=== PATIENT | female | born 1995 ===

== ENCOUNTER 2016-11-27 17:23 | Emergency (ER) | payer BC, MEDICAID ==
[2016-11-27 17:51] VITALS: BMI 20.5
[2016-11-27 17:56] VITALS: RESP 18; TEMP 98.6; O2SAT 100
[2016-11-27] MEDS ORDERED: Sodium Chloride 0.9% 1,000 ML IV STA (18:45)
[2016-11-27 19:57] LABS: ADD MANUAL DIFF? NO
[2016-11-27 20:09] LABS: URINE BILIRUBIN NEGATIVE (NEGATIVE); URINE BLOOD NEGATIVE (NEGATIVE); URINE GLUCOSE (UA) NEGATIVE (NEGATIVE); URINE KETONE NEGATIVE (NEGATIVE); URINE LEUKOCYTE ESTERASE NEGATIVE Leu/uL (NEGATIVE); URINE PROTEIN NEGATIVE mg/dL (<30 mg/dL); URINE UROBILINOGEN 0.2 E.U./dL (<1 E.U./dL)
[2016-11-27 20:11] LABS: ALB/GLOB RATIO 1.3 (1.1-1.8); ALKALINE PHOSPHATASE 55 U/L (38-133); ALT/SGPT 41 U/L (7-56); AST/SGOT 32 U/L (15-39); BILIRUBIN,TOTAL 0.4 mg/dL (0.2-1.3); BLOOD UREA NITROGEN 7 mg/dL (7-21); CALCIUM 9.5 mg/dL (8.4-10.5); CARBON DIOXIDE 29 mmol/L (21-33); CHLORIDE 103 mmol/L (98-107); GFR AFRICAN-AMERICAN > 60; GLUCOSE,RANDOM 90 mg/dL (70-110); LIPASE 47 U/L (23-300); POTASSIUM 4.3 mmol/L (3.6-5.0); SODIUM 140 mmol/L (132-148); TOTAL PROTEIN 7.2 g/dL (5.8-8.3); URINE APPEARANCE CLEAR (CLEAR); URINE COLOR YELLOW (YELLOW)
[2016-11-27 20:15] LABS: INR 1.16 (0.93-1.08); PARTIAL THROMBOPLASTIN TIME 29.5 Seconds (23.7-30.8)
[2016-11-27 20:18] LABS: BASO # 0.04 K/mm3 (0.0-2.0); BASO % 0.4 % (0.0-3.0); EOS # 0.2 (0.0-0.7); EOS % 1.6 % (1.5-5.0); GRAN # 6.52 (1.4-6.5); GRAN % 67.1 % (50.0-68.0); HEMATOCRIT 37.1 % (36.0-48.0); LYMPH # 2.2 (1.2-3.4); LYMPH % 22.1 % (22.0-35.0); MEAN CELL VOLUME 86.3 fL (80.0-105.0); MEAN CORPUSCULAR HEMOGLOBIN 28.8 pg (25.0-35.0); MEAN CORPUSCULAR HGB CONC 33.4 g/dl (31.0-37.0); MEAN PLATELET VOLUME 10.5 fl (7.0-11.0); MONO # 0.9 (0.1-0.6); MONO % 8.8 % (1.0-6.0); PLATELET COUNT 198 10^3/uL (120.0-450.0); RED CELL DISTRIBUTION WIDTH 13.2 % (11.5-14.5); WHITE BLOOD COUNT 9.7 10^3/ul (4.5-11.0)
--- NOTE | 2016-11-27 21:25 | ED PDOC ---
Arrival/HPI - General Chief Complaint: GI Problem Time Seen by Provider: 11/27/16 18:45 Historian: Patient - History of Present Illness Narrative History of Present Illness (Text): 11/27/16 21:22 21yo female present with complaint of mild abdominal pain and diarrhea.. States symptoms started yesterday. She states she had 4episodes of diarrhea today and one episode of vomiting. Denies fever, chills, urinary symptoms, back pain, sick contact, hematemesis, melena, any other complaint. 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 - Psychiatric Hx Psychophysiologic Disorder: No Hx Anxiety: No Hx Bipolar Disorder: No Hx Depression: No Hx Emotional Abuse: No Hx Hallucinations: No Hx Panic Disorder: No Hx Post Traumatic Stress Disorder: No Hx Psychosis: No Hx Physical Abuse: No Hx Schizophrenia: No Hx Sexual Abuse: No Hx Substance Use: No - Surgical History Other/Comment: Right kidney sx at 2yrs old - Anesthesia Hx Anesthesia: Yes Hx Anesthesia Reactions: No Hx Malignant Hyperthermia: No - Suicidal Assessment Feels Threatened In Home Enviroment: No Family/Social History - Physician Review Nursing Documentation Reviewed: Yes Family/Social History: Unknown Family HX Smoking Status: Never Smoked Hx Alcohol Use: No Hx Substance Use: No Hx Substance Use Treatment: No Allergies/Home Meds Allergies/Adverse Reactions: Allergies No Known Allergies Allergy (Verified 11/27/16 17:51) Review of Systems - Physician Review All systems were reviewed & negative as marked: Yes - Review of Systems Constitutional: Normal Eyes: Normal ENT: Normal Respiratory: Normal Cardiovascular: Normal Gastrointestinal: Abdominal Pain, Diarrhea, Nausea, Vomiting. absent: Constipation, Hematochezia, Hematemesis Genitourinary Female: Normal Musculoskeletal: Normal Skin: Normal Neurological: Normal Endocrine: Normal Hemo/Lymphatic: Normal Psychiatric: Normal Physical Exam Vital Signs Reviewed: Yes Vital Signs Temp Pulse Resp BP Pulse Ox 11/27/16 21:30 90 18 110/72 100 11/27/16 17:54 98.6 F 99 H 18 91/58 L 100 Temperature: Afebrile Blood Pressure: Normal Pulse: Regular Respiratory Rate: Normal Appearance: Positive for: Well-Appearing, Non-Toxic, Comfortable Pain Distress: None Mental Status: Positive for: Alert and Oriented X 3 - Systems Exam Head: Present: Atraumatic, Normocephalic Pupils: Present: PERRL Extroacular Muscles: Present: EOMI Conjunctiva: Present: Normal Mouth: Present: Moist Mucous Membranes Neck: Present: Normal Range of Motion Respiratory/Chest: Present: Clear to Auscultation, Good Air Exchange. No: Respiratory Distress, Accessory Muscle Use Cardiovascular: Present: Regular Rate and Rhythm, Normal S1, S2. No: Murmurs Abdomen: Present: Normal Bowel Sounds. No: Tenderness, Distention, Peritoneal Signs, Rebound, Guarding, McBurney's Point Tender, Rovsing's Sign Present Back: Present: Normal Inspection Upper Extremity: Present: Normal Inspection. No: Cyanosis, Edema Lower Extremity: Present: Normal Inspection. No: Edema Neurological: Present: GCS=15, CN II-XII Intact, Speech Normal Skin: Present: Warm, Dry, Normal Color. No: Rashes Psychiatric: Present: Alert, Oriented x 3, Normal Insight, Normal Concentration Medical Decision Making ED Course and Treatment: 11/28/16 00:53 Pt was comfortable in ED. Lab was unremarkable. She was advised to f/u BLAND diet. Referred to her PMD. Rx of Zofran was given. she was able to tolerate fluid in ED. No diarrhea was noted in ED. - Lab Interpretations Lab Results: 11/27/16 19:50 11/27/16 19:50 Lab Results 11/27/16 19:50: Sodium 140, Potassium 4.3, Chloride 103, Carbon Dioxide 29, Anion Gap 12, BUN 7, Creatinine 0.7, Est GFR ( Amer) > 60, Est GFR (Non- Af Amer) > 60, Random Glucose 90, Calcium 9.5, Total Bilirubin 0.4, AST 32, ALT 41, Alkaline Phosphatase 55, Total Protein 7.2, Albumin 4.0, Globulin 3.2, Albumin/Globulin Ratio 1.3, Lipase 47 11/27/16 19:50: Urine Color Yellow, Urine Appearance Clear, Urine pH 7.0, Ur Specific Simpson 1.015, Urine Protein Negative, Urine Glucose (UA) Negative, Urine Ketones Negative, Urine Blood Negative, Urine Nitrate Negative, Urine Bilirubin Negative, Urine Urobilinogen 0.2, Ur Leukocyte Esterase Negative 11/27/16 19:50: PT 12.5 H, INR 1.16 H, APTT 29.5 11/27/16 19:50: WBC 9.7, RBC 4.30, Hgb 12.4, Hct 37.1, MCV 86.3, MCH 28.8, MCHC 33.4, RDW 13.2, Plt Count 198, MPV 10.5, Gran % 67.1, Lymph % (Auto) 22.1, Stephenson % (Auto) 8.8 H, Eos % (Auto) 1.6, Baso % (Auto) 0.4, Gran # 6.52 H, Lymph # 2.2 , Stephenson # 0.9 H, Eos # 0.2, Baso # 0.04 - Medication Orders Current Medication Orders: Discontinued Medications Famotidine (Pepcid) 20 mg IVP STAT STA Stop: 11/27/16 18:46 Last Admin: 11/27/16 19:50 Dose: 20 mg Sodium Chloride (Sodium Chloride 0.9%) 1,000 mls @ 1,000 mls/hr IV .Q1H STA Stop: 11/27/16 19:44 Last Admin: 11/27/16 19:50 Dose: 1,000 mls/hr Ondansetron HCl (Zofran Inj) 4 mg IVP ONCE ONE Stop: 11/27/16 21:24 Last Admin: 11/27/16 21:45 Dose: Not Given Non-Admin Reason: Patient Refused Disposition/Present on Arrival - Present on Arrival Any Indicators Present on Arrival: No History of DVT/PE: No History of Uncontrolled Diabetes: No Urinary Catheter: No History of Decub. Ulcer: No History Surgical Site Infection Following: None - Disposition Have Diagnosis and Disposition been Completed?: Yes Diagnosis: Abdominal pain, Vomiting and diarrhea Disposition: HOME/ ROUTINE Disposition Time: 21:30 Patient Plan: Discharge Condition: STABLE Discharge Instructions (ExitCare): Acute Nausea and Vomiting (ED), Abdominal Pain (ED) Additional Instructions: Follow BLAND diet follow up with your doctor Return to ED for any new or worsening symptoms Prescriptions: Ondansetron ODT [Zofran ODT] 4 mg PO Q8 #3 odt Referrals: PCP,NO [Primary Care Provider] - Follow up with primary
[2016-11-27 23:39] VITALS: BP 110/72; PULSE 90
== END 2016-11-27 21:30 | disposition home or self-care (01) ==
LOC: ED 17:23
DX: R10.9 Unspecified abdominal pain (principal); R11.10 Vomiting, unspecified; R19.7 Diarrhea, unspecified
CPT/HCPCS: 80053; 81003; 83690; 85025; 85610; 85730; 96374; 99284; J7040